=== PATIENT | male | born 1955 | race Caucasian/White ===

== ENCOUNTER 2021-10-14 12:00 | Observation (INO) ==
[2021-10-14 12:38] LABS: Basophils % 0.3 %; Eosinophils % 0.3 %; Hematocrit 47.8 % (37.5-50.1); Hemoglobin 15.6 g/dL (12.9-16.9); Immature Granulocytes % 0.6 % (0-4); Mean Corpuscular HGB Conc 32.6 g/dL (31.6-35.5); Mean Corpuscular Hemoglobin 30.2 pg (28.0-33.3); Mean Corpuscular Volume 92.6 fL (83.0-100.0); Mean Platelet Volume 10.6 fL (9.4-12.4); Monocytes # 0.6 K/mcL (0.0-1.3); Monocytes % 7.5 %; Neutrophils # 6.3 K/mcL (1.6-8.9); Platelet Count 207 K/mcL (140-400); Red Blood Count 5.16 M/mcL (4.19-5.50); Segmented Neutrophils % 78.3 %
[2021-10-14] MEDS ORDERED: 0.9 % Sodium Chloride 1,000 ML IVC ONE ×2 (12:42→13:46)
[2021-10-14] MEDS ORDERED: Ipratropium/Albuterol Neb 3 ML IH ONE (12:42)
[2021-10-14] MEDS ORDERED: predniSONE 20 MG TABLET PO ONE (12:43)
[2021-10-14 12:45] LABS: Prothrombin Time 11.3 Seconds (9.4-12.1)
[2021-10-14 12:47] LABS: Activated Partial Thrombo Time 30.3 Seconds (26.0-36.0)
[2021-10-14 13:01] LABS: Troponin I 0.05 ng/mL (< 0.04)
[2021-10-14 13:12] LABS: Influenza A PCR Negative (Negative); Influenza B PCR Negative (Negative); Resp. Syncytial Virus PCR Negative (Negative)
[2021-10-14 13:45] LABS: BUN/Creatinine Ratio 18 (6-26); Blood Urea Nitrogen 21 mg/dL (8-23); Calcium 9.8 mg/dL (8.6-10.3); Carbon Dioxide 28 mEq/L (23-29); Chloride 96 mEq/L (98-107); Osmolality,Calculated 305 (280-300); Potassium 4.5 mEq/L (3.5-5.1); Sodium 132 mEq/L (136-145); eGFR For African Americans > 60 (> 60); eGFR For Non-African Americans > 60 (> 60)
[2021-10-14] MEDS ORDERED: Insulin Human Regular 5 UNIT in 0.9 % Sodium Chloride 10 ML IV ONE (13:52)
[2021-10-14] MEDS ORDERED: Ibuprofen 600 MG TABLET PO PRN (14:13)
[2021-10-14 14:30] LABS: SARS-CoV-2 by PCR (In House) Positive (Negative)
[2021-10-14] MEDS ORDERED: Acetaminophen 325 MG TABLET PO PRN (14:59)
[2021-10-14] MEDS ORDERED: Melatonin 3 MG TABLET PO PRN (14:59)
[2021-10-14] MEDS ORDERED: *HR* Dextrose 50 % in Water (Syg) 50 ML SYRINGE IVP PRN (14:59)
[2021-10-14] MEDS ORDERED: Naloxone 0.4 MG/ML INJ IVP PRN (14:59)
[2021-10-14] MEDS ORDERED: D5% in Water 1,000 ML IVC PRN (14:59)
[2021-10-14] MEDS ORDERED: Dextrose Gel 15 GM/37.5 ML TUBE PO PRN ×2 (14:59)
[2021-10-14] MEDS ORDERED: Benzonatate 100 MG CAPSULE PO PRN (15:07)
[2021-10-14] MEDS ORDERED: Albuterol 2.5 MG/3 ML NEBULIZER IH PRN (15:07)
[2021-10-14] MEDS ORDERED: Perflutren Lipid Microsphere 1.3 ML in 0.9 % Sodium Chloride 8.7 ML IVP PRN (15:14)
[2021-10-14] MEDS ORDERED: Furosemide 20 MG TABLET PO PRN (15:24)
[2021-10-14] MEDS: Albuterol 2.5 MG/3 ML NEBULIZER IH SCH ×2 (15:46→20:02)
[2021-10-14] MEDS ORDERED: Insulin LISPRO 300 UNITS/3 ML VIAL SUBQ SCH ×2 (16:30→21:00)
[2021-10-14 16:43] LABS: Glucose 604 mg/dL (70-105)
[2021-10-14] MEDS: *HR* OxyCODONE/APAP 5/325 TABLET PO PRN (17:44)
[2021-10-14] MEDS: Aspirin Enteric Coated 81 MG Tablet PO SCH (17:44)
[2021-10-14] MEDS: Insulin LISPRO 300 UNITS/3 ML VIAL SUBQ SCH (17:45)
[2021-10-14 19:09] LABS: Albumin 3.9 g/dL (3.5-5.7); Albumin/Globulin Ratio 1.4 (1.1-2.2); Bilirubin,Indirect 0.5 mg/dL (0.0-1.0); Bilirubin,Total 0.5 mg/dL (0.3-1.0); Globulin 2.7 g/dL (2.4-3.5); Total Protein 6.6 g/dL (6.4-8.9); Troponin I 0.04 ng/mL (< 0.04)
[2021-10-15] MEDS: Insulin LISPRO 300 UNITS/3 ML VIAL SUBQ SCH ×2 (01:33→06:47)
[2021-10-15 04:02] LABS: Basophils % 0.1 %; Hematocrit 43.5 % (37.5-50.1); Hemoglobin 14.2 g/dL (12.9-16.9); Immature Granulocytes % 0.5 % (0-4); Lymphocytes # 0.8 K/mcL (0.6-4.6); Lymphocytes % 6.8 %; Mean Corpuscular HGB Conc 32.6 g/dL (31.6-35.5); Mean Corpuscular Hemoglobin 30.1 pg (28.0-33.3); Mean Corpuscular Volume 92.4 fL (83.0-100.0); Mean Platelet Volume 10.6 fL (9.4-12.4); Monocytes # 0.7 K/mcL (0.0-1.3); Monocytes % 5.6 %; Neutrophils # 10.6 K/mcL (1.6-8.9); Platelet Count 201 K/mcL (140-400); Red Blood Count 4.71 M/mcL (4.19-5.50); Red Cell Distribution Width 12.9 % (11.5-14.5)
[2021-10-15 04:06] LABS: Alanine Aminotransferase 12 Units/L (7-52); Albumin 3.6 g/dL (3.5-5.7); Albumin/Globulin Ratio 1.3 (1.1-2.2); Alkaline Phosphatase 71 Units/L (34-104); Aspartate Amino Transferase 13 Units/L (13-39); BUN/Creatinine Ratio 23 (6-26); Bilirubin,Total 0.4 mg/dL (0.3-1.0); Blood Urea Nitrogen 28 mg/dL (8-23); Calcium 9.1 mg/dL (8.6-10.3); Carbon Dioxide 25 mEq/L (23-29); Chloride 101 mEq/L (98-107); Globulin 2.7 g/dL (2.4-3.5); Glucose 491 mg/dL (70-105); Osmolality,Calculated 301 (280-300); Potassium 4.3 mEq/L (3.5-5.1); Sodium 132 mEq/L (136-145); Total Protein 6.3 g/dL (6.4-8.9); eGFR For African Americans > 60 (> 60); eGFR For Non-African Americans 60 (> 60)
[2021-10-15 04:10] LABS: White Blood Count 12.2 K/mcL (4.3-11.1)
[2021-10-15 04:23] LABS: Troponin I 0.04 ng/mL (< 0.04)
[2021-10-15] MEDS ORDERED: *HR* Enoxaparin 40 MG/0.4 ML SYRINGE SQ SCH (06:00)
[2021-10-15] MEDS: *HR* OxyCODONE/APAP 5/325 TABLET PO PRN (06:43)
[2021-10-15 07:37] VITALS: BP 148/85; PULSE 87; TEMP 97.9
[2021-10-15] MEDS ORDERED: Metoprolol XL (24 HR) Succ 50 MG TAB.ER.24H PO SCH (09:00)
[2021-10-15] MEDS ORDERED: Insulin DETEMIR 100 UNIT/ML X5UNITS SUBQ SCH (09:00)
[2021-10-15] MEDS ORDERED: Isosorbide MONOnitrate (24 HR) 60 MG TAB.ER.24H PO SCH (09:00)
[2021-10-15] MEDS: Aspirin Enteric Coated 81 MG Tablet PO SCH (10:06)
[2021-10-15 11:06] VITALS: O2SAT 91
[2021-10-15] MEDS ORDERED: Insulin LISPRO 300 UNITS/3 ML VIAL SUBQ SCH (11:30)
== END 2021-10-15 13:27 | disposition home or self-care (01) ==
LOC: EMEROOARM 12:00 → 2ANU 12:00
PROVIDERS: ADMIT Internal Medicine; ATTEND Internal Medicine